=== PATIENT | female | born 1950 | race Caucasian/White ===

== ENCOUNTER → 2018-02-05 | Outpatient (CLI) | payer BC ==
[~2018-02-05] MED LIST: ADVIN10050 INH; AMPI250C11 PO; CLR10 PO; IPRA1AER2 INH; LEVO25TA PO; PRVC10 PO; SNG10 PO
== END | disposition home or self-care (01) ==
LOC: C.LABMFLN 10:17
PROVIDERS: ATTEND Family Medicine
DX: E03.9 Hypothyroidism, unspecified (principal)

== ENCOUNTER → 2018-03-09 | Outpatient (CLI) | payer BC ==
[2018-03-09 13:34] LABS: ALBUMIN 4.1 gm/dl (3.4-5.0); ALKALINE PHOSPHATASE 92 U/L (45-117); ALT/SGPT 40 U/L (12-78); AST/SGOT 29 U/L (15-37); BLOOD UREA NITROGEN 18 mg/dl (7-18); CARBON DIOXIDE 27 mmol/L (21-32); CHOLESTEROL 208 mg/dl (0-200); CREATININE 0.75 mg/dl (0.60-1.20); GLUCOSE 85 mg/dl (70-99); LDL CHOLESTEROL CALCULATED 130 mg/dl; SODIUM 142 mmol/L (136-145); TOTAL PROTEIN 7.2 gm/dl (6.4-8.2)
== END | disposition home or self-care (01) ==
LOC: C.LABMFLN 06:53
PROVIDERS: ATTEND Family Medicine
DX: E78.5 Hyperlipidemia, unspecified (principal)